=== PATIENT | female | born 1975 | race Caucasian/White ===

== ENCOUNTER 2019-10-15 17:47 | Emergency (ER) | payer OTHER ==
[~2019-10-15] VITALS: Ht 157.5 cm; Wt 86.9 kg
[2019-10-15] MEDS ORDERED: SODIUM CHLORIDE FLUSH 10ML SYR IVF ONE (19:00)
--- NOTE | 2019-10-15 19:04 | NUR ---
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
[2019-10-15 19:08] LABS: BASOPHILS # (AUTO) 0.05 x10^3/uL (0-0.1); BASOPHILS % (AUTO) 0 % (0-1); EOSINOPHILS # (AUTO) 0.26 x10^3/uL (0-0.4); EOSINOPHILS % (AUTO) 2 % (1-7); LYMPHOCYTES # (AUTO) 2.74 x10^3/uL (1-3.4); LYMPHOCYTES % (AUTO) 23 % (22-44); MD NO; MEAN CORPUSCULAR HEMOGLOBIN 32.9 pg (27.0-34.8); MEAN CORPUSCULAR HGB CONC 34.1 g/dL (32.4-35.8); MEAN CORPUSCULAR VOLUME 96.7 fL (80-100); MEAN PLATELET VOLUME 9.1 fL (7.4-10.4); MONOCYTES # (AUTO) 0.91 x10^3/uL (0.2-0.8); MONOCYTES % (AUTO) 8 % (2-9); NEUTROPHILS # (AUTO) 7.99 x10^3/uL (1.8-6.8); NEUTROPHILS % (AUTO) 67 % (42-75); PLATELET COUNT 333 x10^3/uL (130-400); RED BLOOD COUNT 4.51 x10^6/uL (3.82-5.3); RED CELL DISTRIBUTION WIDTH 13.2 % (9.6-15.2)
[2019-10-15 19:11] LABS: ALBUMIN 3.5 g/dL (3.4-5.0); ANION GAP 5 mmol/L (5-15); CALCIUM 8.2 mg/dL (8.5-10.1); CHLORIDE 112 mmol/L (98-107)
--- NOTE | 2019-10-15 19:13 | NUR ---
UA COLLECTED AND SENT TO LAB. PLACED VITALS SIGNS MONITORS ON PT.
[2019-10-15 19:17] LABS: ALANINE AMINOTRANSFERASE 22 U/L (12-78); ALKALINE PHOSPHATASE 88 U/L (45-117); BILIRUBIN,TOTAL 0.4 mg/dL (0.2-1.0); CREATININE 0.79 mg/dL (0.55-1.02); TOTAL PROTEIN 7.2 g/dL (6.4-8.2)
[2019-10-15] MEDS ORDERED: OMEP-110 PO (19:21)
[2019-10-15 19:42] LABS: CULTURE INDICATED? YES; MICROSCOPIC INDICATED
[2019-10-15] MEDS ORDERED: CEFTRIAXONE 1,000 MG ONE (20:38)
[2019-10-15] MEDS ORDERED: LIDOCAINE-MPF 1%, 5ML ONE (20:39)
--- NOTE | 2019-10-15 20:45 | NUR ---
PT'S PHONE NUMBER.
--- NOTE | 2019-10-15 20:45 | NUR ---
MEDICATED PER MAR.
[2019-10-15] MEDS ORDERED: CEFTRIAXONE 1,000 MG IM ONE (21:00)
[2019-10-15 21:04] VITALS: BP 118/73
--- NOTE | 2019-10-15 21:45 | NUR ---
PT LEFT WITHOUT DC PAPERWORK AND RX. CALL TO PT FOR ELECTRICAL INTEGRATOR, PT REPORTS SHE WILL COME BACK TO ELECTRICAL INTEGRATOR RX TOMORROW.
== END 2019-10-15 21:43 | disposition home or self-care (01) ==
LOC: ED 20:45
DX: N30.00 Acute cystitis without hematuria (principal); M54.32 Sciatica, left side; F17.210 Nicotine dependence, cigarettes, uncomplicated
CPT/HCPCS: 36415; 80053; 81001; 84703; 85025; 87077; 87086; 96372; 99283; 99406; J0696; 87186

== ENCOUNTER 2019-10-29 17:40 | Emergency (ER) | payer SELFPAY ==
[~2019-10-29] VITALS: Ht 157.5 cm; Wt 87.1 kg
[~2019-10-29 17:40] MED LIST: OMEP-110 PO
[2019-10-29 17:52] VITALS: BP 136/92
[2019-10-29 18:25] LABS: MD NO; MONOCYTES % (AUTO) 8 % (2-9)
[2019-10-29] MEDS ORDERED: PHENAZOPYRIDINE 200 MG TABLET PO ONE (18:30)
[2019-10-29] MEDS ORDERED: PHENAZOPYRIDINE 200 MG TABLET ONE (18:30)
[2019-10-29 18:34] LABS: BASOPHILS # (AUTO) 0.02 x10^3/uL (0-0.1); BASOPHILS % (AUTO) 0 % (0-1); EOSINOPHILS # (AUTO) 0.15 x10^3/uL (0-0.4); EOSINOPHILS % (AUTO) 2 % (1-7); LYMPHOCYTES # (AUTO) 2.42 x10^3/uL (1-3.4); LYMPHOCYTES % (AUTO) 30 % (22-44); MEAN PLATELET VOLUME 9.1 fL (7.4-10.4); MONOCYTES # (AUTO) 0.67 x10^3/uL (0.2-0.8); NEUTROPHILS % (AUTO) 60 % (42-75); PLATELET COUNT 277 x10^3/uL (130-400); RED BLOOD COUNT 4.47 x10^6/uL (3.82-5.3); RED CELL DISTRIBUTION WIDTH 13.1 % (9.6-15.2)
[2019-10-29 18:36] LABS: ANION GAP 7 mmol/L (5-15); CALCIUM 8.2 mg/dL (8.5-10.1); CHLORIDE 110 mmol/L (98-107)
[2019-10-29 18:37] LABS: ALBUMIN 3.5 g/dL (3.4-5.0)
[2019-10-29 19:02] LABS: MICROSCOPIC AUTO
[2019-10-29 19:03] LABS: CULTURE INDICATED? YES
[2019-10-29] MEDS ORDERED: CIPROFLOXACIN 500 MG TABLET PO ONE (19:30)
[2019-10-29] MEDS ORDERED: CIPROFLOXACIN 500 MG TABLET ONE (19:33)
== END 2019-10-29 19:40 | disposition home or self-care (01) ==
LOC: ED 19:11
DX: N30.00 Acute cystitis without hematuria (principal); R10.2 Pelvic and perineal pain; R30.0 Dysuria; F17.200 Nicotine dependence, unspecified, uncomplicated; M54.5 Low back pain
CPT/HCPCS: 36415; 80048; 81001; 82040; 85025; 87077; 87086; 87186; 99283